=== PATIENT | female | born 1975 | race Caucasian/White ===

== ENCOUNTER 2021-05-23 17:11 | Emergency (ER) | payer OTHER ==
[~2021-05-23] VITALS: Ht 167.6 cm; Wt 70.8 kg
[2021-05-23 20:30] VITALS: BP 140/67
== END 2021-05-23 20:30 | disposition home or self-care (01) ==
LOC: FSED 17:22
DX: M79.604 Pain in right leg (principal); Z86.718 Personal history of other venous thrombosis and embolism
CPT/HCPCS: 93970; 99283